=== PATIENT | female | born 1980 | race Caucasian/White ===

== ENCOUNTER 2024-08-17 20:05 | Emergency (ER) | payer OTHER ==
[~2024-08-17] VITALS: Ht 175.3 cm; Wt 90.0 kg
[2024-08-17] MEDS ORDERED: HYDROXYZINE HCL25 MG PO (21:01)
[2024-08-17] MEDS ORDERED: VENLAFAXINE HCL75 M1 PO (21:01)
[2024-08-17] MEDS ORDERED: AMITRIPTYLINE100 MG PO (21:01)
[2024-08-17] MEDS ORDERED: HYDROCODON-ACE1 EA10 PO (22:29)
[2024-08-17] MEDS ORDERED: HYDROCODONE BIT/ACETAMINOPHEN 5/325 MG 1 TAB HOME.PACK PO PRN (22:30)
[2024-08-17 23:00] VITALS: BP 139/86
== END 2024-08-17 23:00 | disposition home or self-care (01) ==
LOC: ED 20:05
DX: S62.622A Displaced fracture of middle phalanx of right middle finger, initial encounter for closed fracture (principal); W01.0XXA Fall on same level from slipping, tripping and stumbling without subsequent striking against object, initial encounter; Z90.711 Acquired absence of uterus with remaining cervical stump
CPT/HCPCS: 73140; 99283; A9270